=== PATIENT | female | born 1935 | race Two or more races ===

== ENCOUNTER 2018-11-05 21:26 | Emergency (ER) | payer OTHER ==
[~2018-11-05] VITALS: Ht 162.6 cm; Wt 106.6 kg
--- NOTE | 2018-11-05 21:40 | NUR ---
PT [id number] FROM [facility] C/O R KNEE PAIN S/P "SLIPPING OFF TOILET" X 1 HOUR AGO. DENIES ANY HEAD TRAUMA/NO LOC. AOX4. PT ON MONITOR IN BED 9. WILL CONTINUE TO MONITOR.
[2018-11-05] MEDS ORDERED: IPRATROPIUM NEB FS 0.5 MG/2.5 ML AMPUL.NEB ONE ×2 (21:46→22:55)
[2018-11-05] MEDS ORDERED: ALBUTEROL FS 2.5 MG/3 ML VIAL.NEB ONE ×2 (21:46→22:55)
--- NOTE | 2018-11-05 21:50 | NUR ---
RT AT BEDSIDE
[2018-11-05] MEDS ORDERED: ALBUTEROL FS 2.5 MG/3 ML VIAL.NEB CONTNEB ONE (22:00)
[2018-11-05] MEDS ORDERED: IPRATROPIUM NEB FS 0.5 MG/2.5 ML AMPUL.NEB NEB ONE ×2 (22:00→23:00)
[2018-11-05] MEDS ORDERED: methylPREDNISolone SOD SUCC 125 MG/2ML VIAL IV ONE (22:00)
--- NOTE | 2018-11-05 22:09 | NUR ---
PHLEB AT BEDSIDE FOR LAB DRAW
[2018-11-05] MEDS ORDERED: methylPREDNISolone SOD SUCC 125 MG/2ML VIAL ONE (22:11)
[2018-11-05] MEDS ORDERED: ACETAMINOPHEN 325 MG TABLET ONE (22:17)
[2018-11-05 22:22] LABS: BASOPHILS # (AUTO) 0.1 /CMM (0.0-0.2); BASOPHILS % (AUTO) 0.7 % (0.0-2.0); EOSINOPHILS % (AUTO) 3.4 % (0.0-6.0); HEMATOCRIT 42 % (33-45); HEMOGLOBIN 13.8 g/dL (11.5-14.8); LYMPHOCYTES # (AUTO) 1.4 /CMM (0.8-4.8); LYMPHOCYTES % (AUTO) 14.3 % (20.0-44.0); MEAN CORPUSCULAR HGB CONC 33 g/dl (31.0-36.0); MEAN CORPUSCULAR VOLUME 97 fL (82-100); MONOCYTES # (AUTO) 1.5 /CMM (0.1-1.30); MONOCYTES % (AUTO) 15.9 % (2.0-12.0); NEUTROPHILS # (AUTO) 6.3 /CMM (1.8-8.9); NEUTROPHILS % (AUTO) 65.7 % (43.0-81.0); PLATELET COUNT (AUTO) 189 /CMM (150-450); RED BLOOD CELL COUNT(AUTO) 4.28 MIL/uL (4.0-5.2); WHITE BLOOD COUNT (AUTO) 9.6 K/uL (4.3-11.0)
--- NOTE | 2018-11-05 22:22 | NUR ---
RADIOLOGY AT BEDSIDE FOR XRAY
--- NOTE | 2018-11-05 22:26 | NUR ---
PT TAKEN TO RADIOLOGY VIA [facility]
[2018-11-05 22:30] LABS: CALCIUM, SERUM 8.9 mg/dL (8.5-10.1); CARBON DIOXIDE 30 mmol/L (21-32); CHLORIDE 101 mmol/L (98-107); CREATININE 0.9 mg/dL (0.6-1.3); GLUCOSE 109 mg/dL (74-106); POTASSIUM 4.5 mmol/L (3.5-5.1); SODIUM SERUM 137 mmol/L (136-145); UREA NITROGEN, BLOOD 29 mg/dL (7-18)
[2018-11-05] MEDS ORDERED: ACETAMINOPHEN 325 MG TABLET PO ONE (22:30)
[2018-11-05] MEDS ORDERED: CALC-20 PO (22:32)
[2018-11-05] MEDS ORDERED: ASPI-1152 PO (22:32)
[2018-11-05] MEDS ORDERED: LEVO150T8 PO (22:32)
[2018-11-05] MEDS ORDERED: ACET325C3 PO (22:32)
[2018-11-05] MEDS ORDERED: FLUT1DIS IH (22:32)
[2018-11-05] MEDS ORDERED: PRAV80TA21 PO (22:32)
[2018-11-05] MEDS ORDERED: CHOL100040 PO (22:32)
[2018-11-05] MEDS ORDERED: MONT10TA22 PO (22:32)
[2018-11-05] MEDS ORDERED: FURO20TA4 PO (22:32)
[2018-11-05] MEDS ORDERED: ALBU2.5V13 NEB (22:32)
[2018-11-05] MEDS ORDERED: CETI-102 PO (22:32)
[2018-11-05] MEDS ORDERED: LOSA25TA27 PO (22:32)
[2018-11-05] MEDS ORDERED: POLY17PO4 PO (22:32)
[2018-11-05] MEDS ORDERED: MIRT15TA7 PO (22:32)
[2018-11-05] MEDS ORDERED: ALEN70TA6 PO (22:32)
[2018-11-05] MEDS ORDERED: TIOT4MIS2 IH (22:32)
[2018-11-05] MEDS ORDERED: SENN-168 PO (22:32)
[2018-11-05] MEDS ORDERED: MULT1TAB82 PO (22:32)
[2018-11-05] MEDS ORDERED: ALBU8.5H8 INH (22:32)
[2018-11-05] MEDS ORDERED: DOCU-141 PO (22:32)
[2018-11-05] MEDS ORDERED: HYDR-4384 PO (22:32)
[2018-11-05] MEDS ORDERED: LOPE2CAP PO (22:32)
[2018-11-05] MEDS ORDERED: BENZ-13 PO (22:32)
[2018-11-05 22:44] LABS: ALANINE AMINOTRANSFERASE 34 U/L (12-78); ALBUMIN 3.8 g/dL (3.4-5.0); ALKALINE PHOSPHATASE 126 U/L (46-116); ASPARTATE AMINOTRANSFERASE 32 U/L (15-37); BILIRUBIN,DIRECT 0.2 mg/dL (0.0-0.2); BILIRUBIN,TOTAL 0.7 mg/dL (0.2-1.0); TOTAL PROTEIN, SERUM 7.2 g/dL (6.4-8.2)
[2018-11-05] MEDS ORDERED: ALBUTEROL FS 2.5 MG/3 ML VIAL.NEB NEB ONE (23:00)
[2018-11-05] MEDS ORDERED: FUROSEMIDE 40 MG/4 ML VIAL IV ONE (23:30)
[2018-11-05] MEDS ORDERED: ASPIRIN 81 MG TAB.CHEW PO ONE (23:30)
[2018-11-05] MEDS ORDERED: FUROSEMIDE 40 MG/4 ML VIAL ONE (23:41)
[2018-11-05] MEDS ORDERED: ASPIRIN 81 MG TAB.CHEW ONE (23:42)
--- NOTE | 2018-11-05 23:51 | NUR ---
PT TRANSFERRING TO [facility]. ACCEPTING MD ANNE. REPORT: [phone]. AMBULANCE ETA [id number]
[2018-11-06 00:06] LABS: EOSINOPHILS % (MANUAL) 2 % (0-4); LYMPHOCYTES % (MANUAL) 17 % (16-48); MONOCYTES % (MANUAL) 12 % (0-11.0); NEUTROPHILS % (MANUAL) 69 (42-76)
[2018-11-06 00:12] VITALS: BP 147/114
--- NOTE | 2018-11-06 00:12 | NUR ---
URINE COLLECTED AND SENT TO LAB
--- NOTE | 2018-11-06 00:28 | NUR ---
GAVE REPORT TO EDWAR WEST AT [facility]
== END 2018-11-06 00:49 | disposition short-term general hospital (02) ==
LOC: ER 21:27
DX: I11.0 Hypertensive heart disease with heart failure (principal); I50.9 Heart failure, unspecified; F03.90 Unspecified dementia, unspecified severity, without behavioral disturbance, psychotic disturbance, mood disturbance, and anxiety; E11.9 Type 2 diabetes mellitus without complications; E03.9 Hypothyroidism, unspecified; I48.91 Unspecified atrial fibrillation; Z79.82 Long term (current) use of aspirin; W01.0XXA Fall on same level from slipping, tripping and stumbling without subsequent striking against object, initial encounter; Y93.89 Activity, other specified; Y92.002 Bathroom of unspecified non-institutional (private) residence as the place of occurrence of the external cause; Y99.8 Other external cause status
CPT/HCPCS: 36415; 70450; 71045; 72170; 80048; 80076; 83880; 84484; 85025; 93005; 94644; 96374; 96375; 99285; J1940; J2930

== ENCOUNTER 2020-04-15 11:19 | Emergency (ER) | payer OTHER ==
[~2020-04-15] VITALS: Ht 167.6 cm; Wt 85.7 kg
[~2020-04-15 11:19] MED LIST: ACET325C3 PO; ALBU2.5V13 NEB; ALBU8.5H8 INH; ALEN70TA6 PO; ASPI-1420 PO; BENZ-13 PO; CALC-20 PO; CETI-90 PO; CHOL100040 PO; DOCU-141 PO; FLUT1DIS IH; FURO20TA4 PO; HYDR-4384 PO; LEVO150T8 PO; LOPE2CAP PO; LOSA25TA27 PO; MIRT15TA7 PO; MONT10TA22 PO; MULT1TAB82 PO; POLY17PO4 PO; PRAV80TA21 PO; SENN-261 PO; TIOT4MIS2 IH
--- NOTE | 2020-04-15 11:19 | NUR ---
PT BIBRA FROM [facility] C/O MORE ALTERED THAN USUAL. 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 WILL CONTINUE TO MONITOR.
--- NOTE | 2020-04-15 11:31 | NUR ---
CALLED [facility] FOR RECORDS. WILL CALL BACK WHEN WE ADMIT OR DISCHARGE PATIENT.
--- NOTE | 2020-04-15 11:35 | NUR ---
SEEN AND EXAMINED BY .
--- NOTE | 2020-04-15 11:49 | NUR ---
URINE SPECIMEN COLLECTED AND SENT TO LAB.
--- NOTE | 2020-04-15 11:49 | NUR ---
ER PHLEB AT BEDSIDE FOR BLOOD DRAW
[2020-04-15 12:10] LABS: BASOPHILS # (AUTO) 0.1 /CMM (0.0-0.2); BASOPHILS % (AUTO) 0.9 % (0.0-2.0); EOSINOPHILS % (AUTO) 6.5 % (0.0-6.0); HEMATOCRIT 35 % (33-45); HEMOGLOBIN 11.3 g/dL (11.5-14.8); LYMPHOCYTES # (AUTO) 1.7 /CMM (0.8-4.8); LYMPHOCYTES % (AUTO) 17.9 % (20.0-44.0); MEAN CORPUSCULAR HGB CONC 32 g/dl (31.0-36.0); MEAN CORPUSCULAR VOLUME 94 fL (82-100); MONOCYTES # (AUTO) 1.2 /CMM (0.1-1.30); MONOCYTES % (AUTO) 12.8 % (2.0-12.0); NEUTROPHILS # (AUTO) 5.8 /CMM (1.8-8.9); NEUTROPHILS % (AUTO) 61.9 % (43.0-81.0); PLATELET COUNT (AUTO) 143 /CMM (150-450); RED BLOOD CELL COUNT(AUTO) 3.74 MIL/uL (4.0-5.2); WHITE BLOOD COUNT (AUTO) 9.4 K/uL (4.3-11.0)
[2020-04-15 12:13] LABS: BILIRUBIN,URINE NEGATIVE (NEGATIVE); BLOOD, URINE NEGATIVE Ery/uL (NEGATIVE); COLOR,URINE YELLOW (YELLOW); KETONES,URINE NEGATIVE (NEGATIVE); LEUKOCYTE ESTERASE ,URINE SMALL (NEGATIVE); NITRITE, URINE NEGATIVE (NEGATIVE); PH,URINE 5.5 (5.0-8.0); PROTEIN,URINE 30 mg/dl (NEGATIVE); UGLUCOSE NEGATIVE (NEGATIVE); UROBILINOGEN,URINE 0.2 EU/dL (0.2)
[2020-04-15 12:14] LABS: APPEARANCE,URINE CLOUDY (CLEAR)
[2020-04-15 12:21] LABS: ALANINE AMINOTRANSFERASE 19 U/L (12-78); ALBUMIN 2.1 g/dL (3.4-5.0); ALKALINE PHOSPHATASE 146 U/L (46-116); ASPARTATE AMINOTRANSFERASE 28 U/L (15-37); BILIRUBIN,DIRECT 0.7 mg/dL (0.0-0.2); BILIRUBIN,TOTAL 1.2 mg/dL (0.2-1.0); CALCIUM, SERUM 8.8 mg/dL (8.5-10.1); CARBON DIOXIDE 21 mmol/L (21-32); CHLORIDE 108 mmol/L (98-107); CREATININE 4.2 mg/dL (0.6-1.3); GLUCOSE 94 mg/dL (74-106); POTASSIUM 4.6 mmol/L (3.5-5.1); SODIUM SERUM 141 mmol/L (136-145); TOTAL PROTEIN, SERUM 5.2 g/dL (6.4-8.2); UREA NITROGEN, BLOOD 66 mg/dL (7-18)
[2020-04-15 12:30] LABS: BACTERIA,URINE Few /HPF (None Seen); SQUAMOUS EPITHELIAL CELL,UR Many /HPF (None Seen); URINE AMORPHOUS URATE Few /HPF (None Seen)
--- NOTE | 2020-04-15 12:33 | NUR ---
CALLED [facility] FOR TO WILL CALL BACK.
--- NOTE | 2020-04-15 12:42 | NUR ---
COVID SPECIMEN COLLECTED AND SENT TO LAB.
[2020-04-15] MEDS ORDERED: NYST15PO4 TP (13:22)
[2020-04-15] MEDS ORDERED: POTA10TA17 PO (13:22)
[2020-04-15] MEDS ORDERED: CLOPIDOGREL BISULFATE 75 MG TABLET ONE (13:22)
[2020-04-15] MEDS ORDERED: ALEN70TA3 PO (13:22)
[2020-04-15] MEDS ORDERED: HYDR25SU33 RC (13:22)
[2020-04-15] MEDS ORDERED: CLOPIDOGREL BISULFATE 75 MG TABLET PO ONE (13:30)
--- NOTE | 2020-04-15 14:44 | NUR ---
RECEIVED A CALL FROM [facility]. PAMELA WILL BE GOING TO [facility]. ACCEPTING DR. IS DR. WAGNER. NUMBER FOR REPORT IS [phone]. ALS TRANSPORT WAS ORDERED WITH AN ETA OF [id number] WITH [facility].
[2020-04-15] MEDS ORDERED: hydrALAZINE HCL IV 20 MG VIAL ONE (14:57)
[2020-04-15 15:27] VITALS: BP 105/54
[2020-04-15] MEDS ORDERED: hydrALAZINE HCL IV 20 MG VIAL IV ONE ×2 (15:30)
--- NOTE | 2020-04-15 15:40 | NUR ---
REPORT GIVEN TO EDWAR BRAVO OF [facility].
--- NOTE | 2020-04-15 15:54 | NUR ---
REPORT GIVEN TO EMT FOR PT TRANSFER TO [facility].
== END 2020-04-15 16:04 | disposition short-term general hospital (02) ==
LOC: ER 11:25
DX: I21.4 Non-ST elevation (NSTEMI) myocardial infarction (principal); N17.9 Acute kidney failure, unspecified; G93.40 Encephalopathy, unspecified; I48.91 Unspecified atrial fibrillation; I11.9 Hypertensive heart disease without heart failure; E03.9 Hypothyroidism, unspecified; E11.9 Type 2 diabetes mellitus without complications; F03.90 Unspecified dementia, unspecified severity, without behavioral disturbance, psychotic disturbance, mood disturbance, and anxiety; Z20.828 Contact with and (suspected) exposure to other viral communicable diseases
CPT/HCPCS: 36415; 70450; 71045; 80048; 80076; 81001; 84484; 85025; 87426; 93005; 96374; 99291; C9803; J0360; 81000-TC